=== PATIENT | male | born 1975 | race African-American/Black ===

== ENCOUNTER 2016-10-05 12:56 | Emergency (ER) | payer MEDICAID, OTHER ==
[2016-10-05] MEDS ORDERED: MOTRIN PO ONE (16:42)
--- NOTE | 2016-10-05 16:45 | Emergency Department Report ---
Minor Respiratory - HPI Chief Complaint: Upper Respiratory Infection Stated Complaint: COUGHING/BODY ACHES/WEAK Time Seen by Provider: 10/05/16 16:36 Duration: 4 Days Pain Location: Other (body aches all over) Minor Respiratory: Yes Rhinorrhea, Yes Sore Throat, Yes Able to Tolerate Fluids , Yes Cough, No Ear Pain, No Sick Contacts, No Hemoptysis, No Chest Pain, No Shortness of Breath, No Fever Other History: 41-year-old male comes in for complaint of headache chills body aches sore throat 4 days. He does report he isn't taken Tylenol without much success. ED Review of Systems ROS: Stated complaint: COUGHING/BODY ACHES/WEAK Other details as noted in HPI Constitutional: chills. denies: fever Eyes: denies: eye pain, eye discharge, vision change ENT: throat pain Respiratory: cough. denies: shortness of breath, wheezing Cardiovascular: denies: chest pain Musculoskeletal: arthralgia, other (body aches) Neurological: headache ED Past Medical Hx - Past Medical History Previous Medical History?: No - Surgical History Additional Surgical History: Abdominal Surgery - Social History Smoking Status: Never Smoker Substance Use Type: None - Medications Home Medications: Home Medications Medication Instructions Recorded Confirmed Last Taken Type Cetirizine HCl [ZyrTEC] 10 mg PO QDAY #30 capsule 10/05/16 Unknown Rx Ibuprofen [Motrin 600 MG tab] 600 mg PO Q8H PRN #30 tablet 10/05/16 Unknown Rx guaiFENesin/CODEINE [Robitussin AC] 5 ml PO QID PRN #100 ml 10/05/16 Unknown Rx Minor Respiratory Exam - Exam General: Vital signs noted. No distress. Alert and acting appropriately. HEENT: Yes Pharyngeal Erythema, Yes Moist Mucous Membranes, Yes Rhinorrhea, No Pharyngeal Exudates, No Conjuctival Injection, No Frontal Tenderness, No Maxillary Tenderness Ear: Neither TM Bulge, Neither TM Erythema, Neither EAC Pain, Neither EAC Discharge Neck: Yes Supple, No Adenopathy Lungs: Yes Good Air Exchange, Yes Cough, No Wheezes, No Ronchi, No Stridor, No Labored Respirations, No Retractions, No Use of Accessory Muscles, No Other Abnormal Lung Sounds Neurologic: Alert and oriented, no deficits. Musculoskeletal: Unremarkable. ED Course Vital Signs 10/05/16 13:02 Temperature 98.7 F Pulse Rate 97 H Respiratory 20 Rate Blood Pressure 126/70 O2 Sat by Pulse 100 Oximetry ED Medical Decision Making - Medical Decision Making Patient been advised by this provider in fast track. We will send out a influenza AMB antigen test. As well as given a ibuprofen 600 mg now. Critical care attestation.: If time is entered above; I have spent that time in minutes in the direct care of this critically ill patient, excluding procedure time. ED Disposition Clinical Impression: Cold Disposition: DISCHARGED TO HOME OR SELFCARE Is pt being admited?: No Does the pt Need Aspirin: No Instructions: Antihistamine/Antitussive/Decongestant (By mouth) Additional Instructions: Drink plenty of fluids. Take medication as prescribed follows her primary care provider Prescriptions: Cetirizine HCl [ZyrTEC] 10 mg PO QDAY #30 capsule guaiFENesin/CODEINE [Robitussin AC] 5 ml PO QID PRN #100 ml PRN Reason: Cough Ibuprofen [Motrin 600 MG tab] 600 mg PO Q8H PRN #30 tablet PRN Reason: Pain Referrals: YU SINGH MD [Staff Physician] - 3-5 Days Forms: Work/School Release Form(ED)
[2016-10-05 17:43] VITALS: BP 120/70
== END 2016-10-05 17:42 | disposition home or self-care (01) ==
LOC: ED 12:56
DX: J00 Acute nasopharyngitis [common cold] (principal)
CPT/HCPCS: 87400; 99282